=== PATIENT | female | born 1985 | race American Indian/Alaskan Native ===

== ENCOUNTER → 2024-04-06 | Outpatient (CLI) | payer MEDICAID, SELFPAY ==
--- NOTE | 2024-04-06 07:15 | XR_ITS ---
Examination: Abdomen sonogram, complete Date and time of exam: April 06, 2022 0722 hours INDICATIONS: Recurrent epigastric pain one month. Technique: Multiple real-time grayscale transabdominal sonographic images of the abdomen have been obtained. Findings: Normal gallbladder Normal common bile duct 0.3 cm Pancreatic head 2.6 cm Aorta not enlarged. Liver 16.5 cm fatty infiltration smooth contour no focal liver lesions Normal hepatopedal portal venous oh Patent IVC Right kidney 10.3 x 4.7 x 5.3 cm cortex 1.3 cm Left kidney 10.6 x 5.3 x 5.7 cm cortex 1.4 cm Mild left renal parenchymal scar formation Spleen 10.6 cm IMPRESSION: Normal gallbladder Mild hepatomegaly fatty liver
== END | disposition home or self-care (01) ==
LOC: CDIM 06:59
PROVIDERS: Referring Provider Nurse Practitioner Family; Visit Provider Nurse Practitioner Family
DX: K76.0 Fatty (change of) liver, not elsewhere classified (principal)
CPT/HCPCS: 76700

== ENCOUNTER 2024-05-07 08:31 | Emergency (ER) | payer MEDICAID, SELFPAY ==
[2024-05-07 08:38] VITALS: BP 142/85; PULSE 94; RESP 16; TEMP 36.6; O2SAT 98
--- NOTE | 2024-05-07 08:46 | EDNOTE_ITS ---
<Statement entered by Breann Fernando MD - 05/08/24 09:18> As co-signing physician, I was present and available for consult prn. I concur with the plan and care as documented by the midlevel provider. ED Allergic Reaction RME/HPI General Chief complaint: Allergic Reaction Stated complaint: LIP SWELLING SINCE 0500 TODAY, ? ALLERGIC RXN Time Seen by Provider: 05/07/24 08:34 Arrival date/time: 05/07/24 08:31 38-year-old female with no significant medical problems presents the emergency department today with complaints of swelling to the upper lip patient for symptom started last night patient reports no difficulty breathing or swallowing patient reports no chance of Limitations: no limitations Related Data Previous Rx's ?Medication ?Instructions ?Recorded acetaminophen 325 mg tablet 650 mg (2 x 325 mg) PO Q4H #30 tabs 05/08/19 (Tylenol) guaifenesin 400 mg tablet 400 mg PO Q6H #20 tabs 05/08/19 ibuprofen 600 mg tablet 600 mg PO Q6H #30 tabs 05/08/19 pseudoephedrine HCl 60 mg tablet 60 mg PO Q6H #20 tabs 05/08/19 diphenhydramine HCl 25 mg capsule 25 mg PO Q8H PRN allergic symptoms 05/07/24 (Benadryl) #30 caps prednisone 10 mg tablet 30 mg (3 x 10 mg) PO BID 3 days 05/07/24 #18 tabs Allergies Allergy/AdvReac Type Severity Reaction Status Date / Time No Known Allergies Allergy Verified 05/07/24 08:33 Review of Systems Review of Systems Systems Reviewed: All systems reviewed, normal except as documented Constitutional Constitutional: Reports system reviewed and no additional complaints, except as documented, Denies fever(s) and Denies headache(s) Eyes Eyes: Reports system reviewed and no additional complaints, except as documented and Denies blurry vision ENT Ears, Nose, Mouth, and Throat: Reports system reviewed and no additional complaints, except as documented, Denies headache(s), Denies nasal congestion, Denies nasal discharge and Reports other (Upper lip swelling) Cardiovascular Cardiovascular: Reports system reviewed and no additional complaints, except as documented, Denies chest pain and Denies dyspnea Respiratory Respiratory: Reports system reviewed and no additional complaints, except as documented, Denies chest congestion, Denies cough and Denies dyspnea Gastrointestinal Gastrointestinal: Reports system reviewed and no additional complaints, except as documented and Denies abdominal pain Integumentary/Breasts Skin/Breast: Reports system reviewed and no additional complaints, except as documented and Denies rash Neurologic Neurologic: Reports system reviewed and no additional complaints, except as documented, Reports as per HPI and Denies headache(s) Past Medical History Past Medical History NEUROLOGIC: 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) CARDIAC: Negative Cardiac Disorders or Congestive Heart Failure RESPIRATORY: Negative Chronic Obstructive Pulmonary Disease (COPD) GASTROINTESTINAL: Negative Gastrointestinal Disorders GENITOURINARY: Negative Genitourinary Disorders or Renal Disease REPRODUCTIVE: Positive Endometriosis and Previous Pregnancies (1) MUSCULOSKELETAL: Positive Musculoskeletal Disorders ENT: 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) ENDOCRINE: Negative Endocrine Disorders, Diabetes Mellitus Type 1 or Diabetes Mellitus Type 2 HEMATOLOGIC: Negative Blood Disorders OTHER HISTORY: Positive Hospitalization and Chicken Pox; Negative Measles or Mumps Family History FAMILY HISTORY: Positive Family Respiratory Disorders (dad-PNA) Surgical History SURGICAL: Positive Abdominal Surgery; Negative Hysterectomy (D & C 2010) Social History SMOKING STATUS: Never smoker ED Exam General Limitations: Present no limitations General appearance: Present alert and in no apparent distress Head Head exam: Present atraumatic, normocephalic and normal inspection Eye Eye exam: Present normal appearance, PERRL and EOMI; Absent conjunctival injection ENT ENT exam: Present mucous membranes moist and other (Upper lip swelling) Neck Neck exam: Present normal inspection, full ROM and trachea midline Chest Chest inspection: Present normal inspection and symmetric chest wall rise Respiratory Respiratory exam: Present normal lung sounds bilaterally Cardiovascular Cardiovascular exam: Present regular rate, normal rhythm and normal heart sounds Abdominal Exam Abdominal exam: Present soft and normal bowel sounds Extremities Exam Extremities exam: Present normal inspection and full ROM Back Exam Back exam: Present normal inspection and full ROM Neurological Exam Neurological exam: Present alert, oriented X3 and CN II-XII intact Psychiatric Psychiatric exam: Present normal affect and normal mood Skin Skin exam: Present warm, dry, intact and normal color Course Quality Measures none Orders Category Date Time Status Dexamethasone Inj [Decadron Inj] Med 05/07/24 08:46 Discontinued 10 mg PO X1 ONE DiphenhydrAMINE [Benadryl] Med 05/07/24 08:46 Discontinued 25 mg PO X1 ONE Famotidine [Pepcid] Med 05/07/24 08:46 Discontinued 20 mg PO X1 ONE Vital Signs Vital signs: Vital Signs Temperature 97.8 F 05/07/24 08:38 Pulse Rate 94 05/07/24 08:38 Respiratory Rate 16 05/07/24 08:38 Blood Pressure 142/85 H 05/07/24 08:38 Pulse Oximetry (%) 98 05/07/24 08:38 Oxygen Delivery Method Room Air 05/07/24 08:38 O2 saturation 98% room air within normal limits Allergic Reaction MDM Narrative MDM Narrative:: 38-year-old female with no significant medical problems presents the emergency department today with complaints of swelling to the upper lip patient for symptom started last night patient reports no difficulty breathing or swallowing patient reports no chance of On exam patient well-appearing patient does not appear ill or toxic patient does not appear to be in acute distress Patient medicated here for allergic reaction patient has no evidence of anaphylaxis Patient discharged home in no distress to follow-up with primary care doctor in the next 24 to 48 hours and for any worsening symptoms to return to the ER immediately Patient data External records reviewed:: [facility] previous records Clinical information provided by:: patient Social determinants that could affect healthcare access:: none Patient has the following chronic illnesses:: None How is presenting disease/condition affected by chronic disease/condition?: no chronic disease Evaluation data The following diagnostics were reviewed and interpreted by me:: other (specify) (N/A) Lab and/or radiology exams considered but not ordered:: Consider not ordered Interpretation Summary: N/A Medications / Prescriptions Medications or Prescriptions considered but not ordered:: Given Medication administrations:: Medication Administration History Discontinued Medications Dexamethasone Sodium Phosphate (Dexamethasone Sod Phos Inj 10 Mg/Ml Vial) 10 mg PO X1 ONE Stop: 05/07/24 08:47 Last Admin: 05/07/24 08:52 Dose: 10 mg Documented By: SHAYLA Comments: Med give PO Diphenhydramine HCl (Diphenhydramine 25 Mg Capsule) 25 mg PO X1 ONE Stop: 05/07/24 08:47 Last Admin: 05/07/24 08:51 Dose: 25 mg Documented By: DB Famotidine (Famotidine 20 Mg Tablet) 20 mg PO X1 ONE Stop: 05/07/24 08:47 Last Admin: 05/07/24 08:51 Dose: 20 mg Documented By: SHAYLA Given Consultations Consultation(s) initiated? (list below): No Diagnosis Differential Diagnosis allergic reaction: anaphylaxis, allergic reaction, urticaria and other Most likely diagnosis given after review of the tests above:: Allergic reaction Admission Indicated Admission indicated?: not indicated Admission Request Was there a request for admission?: No Disposition Plan Disposition Plan: Discharge Discharge Attestation Discharge Attestation: The patient and all family members were given an opportunity to ask questions and understood the discharge instructions. Discharge instructions specifically effects, indications for sooner follow up or return to the emergency department, and the expected course of current diagnosis. Patient condition: Stable Discharge Plan Plan Patient Disposition: HOME (Self Care) Disposition Comment: Stable Prescriptions/Referrals Prescriptions/Med Rec: New prednisone 10 mg tablet 30 mg PO BID 3 Days Qty: 18 0RF diphenhydramine HCl [Benadryl] 25 mg capsule 25 mg PO Q8H PRN (Reason: allergic symptoms) Qty: 30 0RF No Action pseudoephedrine HCl 60 mg tablet 60 mg PO Q6H Qty: 20 0RF guaifenesin 400 mg tablet 400 mg PO Q6H Qty: 20 0RF ibuprofen 600 mg tablet 600 mg PO Q6H Qty: 30 0RF acetaminophen [Tylenol] 325 mg tablet 650 mg PO Q4H Qty: 30 0RF Problem List Clinical Impression: Allergic reaction Patient/Caregiver Discharge Instructions Education Materials: ED Medicine Reaction: Allergic Additional Instructions: Please follow up with your primary care doctor in the next 24-48hrs for any worsening symptoms return here immediately Print Language: Greek Stand Alone Forms: [facility] Award Info., Patient Portal Info Letter PA/GRADE TEACHER Supervising Physician PA/GRADE TEACHER Supervising Physician: Dr. FERNANDO
[2024-05-07] MEDS: DiphenhydrAMINE 25 MG CAPSULE PO (08:51)
[2024-05-07] MEDS: FAMOTIDINE 20 MG TABLET PO (08:51)
[2024-05-07] MEDS: DEXAMETHASONE SOD PHOS INJ 10 MG/ML VIAL PO (08:52)
== END 2024-05-07 08:57 | disposition home or self-care (01) ==
LOC: SERX 09:03
PROVIDERS: Emergency Provider Emergency Medicine; PCP Nurse Practitioner Family
DX: T78.40XA Allergy, unspecified, initial encounter (principal)
CPT/HCPCS: 99282; J1100; A9270

== ENCOUNTER 2025-01-03 13:08 | Emergency (ER) | payer OTHER, SELFPAY ==
[2025-01-03 13:08] VITALS: BMI 33.8
[2025-01-03 13:33] VITALS: BP 132/79; PULSE 67; RESP 16; TEMP 36.9; O2SAT 97
--- NOTE | 2025-01-03 13:37 | XR_ITS ---
Examination: Abdomen sonogram, Limited Date and time of exam: January 03, 2025 1403 hours INDICATIONS: Right upper abdominal pain today Technique: Real-time miranda scale transabdominal sonographic images of the upper abdomen obtained. Findings: Negative for gallstones Normal gallbladder wall Normal common bile duct 0.3 cm Pancreatic head 2.7 cm Liver 16.2 cm fatty infiltration no focal liver lesions Normal hepatopedal portal venous flow Patent IVC IMPRESSION: Negative for cholelithiasis, negative for cholecystitis Normal common bile duct
--- NOTE | 2025-01-03 13:37 | EDNOTE_ITS ---
<Statement entered by Breann Fernando MD - 01/04/25 11:56> As co-signing physician, I was present and available for consult prn. I concur with the plan and care as documented by the midlevel provider. ED Abdominal Pain RME/HPI General Chief Complaint: Chest Pain Stated complaint: CHEST PAIN SINCE 0800 WORSE WITH BREATHING Time seen by provider: 01/03/25 13:15 Arrival date/time: 01/03/25 13:08 39-year-old female with no known medical history presents to the emergency room with a chief complaint of right upper quadrant abdominal pain that radiates to the epigastric area x 2 days Source: patient Mode of arrival: ambulatory Limitations: no limitations Related Data Previous Rx's ?Medication ?Instructions ?Recorded acetaminophen 325 mg tablet 650 mg (2 x 325 mg) PO Q4H #30 tabs 05/08/19 (Tylenol) guaifenesin 400 mg tablet 400 mg PO Q6H #20 tabs 05/08 ibuprofen 600 mg tablet 600 mg PO Q6H #30 tabs 05/08 pseudoephedrine HCl 60 mg tablet 60 mg PO Q6H #20 tabs 05/08/19 diphenhydramine HCl 25 mg capsule 25 mg PO Q8H PRN all ergic symptoms 05/07/24 (Benadryl) #30 caps Allergies Allergy/AdvReac Type Severity Reaction Status Date / Time cashew nut Allergy Severe Swelling Verified 01/03/25 13:12 of Lip/Tongue/Throat pistachio nut Allergy Severe Swelling Verified 01/03/25 13:12 of Lip/Tongue/Throat Review of Systems Review of Systems Systems Reviewed: All systems reviewed, normal except as documented Constitutional Constitutional: Reports system reviewed and no additional complaints, except as documented, Denies fatigue, Denies fever(s), Denies headache(s) and Denies weakness Eyes Eyes: Reports system reviewed and no additional complaints, except as documented, Denies blurry vision and Denies change in vision ENT Ears, Nose, Mouth, and Throat: Reports system reviewed and no additional complaints, except as documented, Denies otalgia, Denies headache(s), Denies nasal congestion, Denies throat swelling and Denies vertigo Cardiovascular Cardiovascular: Reports system reviewed and no additional complaints, except as documented, Denies chest pain, Denies dyspnea and Denies dyspnea on exertion Respiratory Respiratory: Reports system reviewed and no additional complaints, except as documented, Denies chest congestion, Denies cough, Denies dyspnea, Denies dyspnea on exertion and Denies wheezing Gastrointestinal Gastrointestinal: Reports system reviewed and no additional complaints, except as documented, Reports abdominal pain, Denies cramping, Reports dyspepsia, Reports early satiety, Reports heartburn, Reports nausea and Denies vomiting Genitourinary Genitourinary: Reports system reviewed and no additional complaints, except as documented Musculoskeletal Musculoskeletal: Reports system reviewed and no additional complaints, except as documented and Denies back pain Integumentary/Breasts Skin/Breast: Reports system reviewed and no additional complaints, except as documented and Denies wounds Neurologic Neurologic: Reports system reviewed and no additional complaints, except as documented, Denies confusion, Denies headache(s), Denies lack of coordination, Denies vertigo and Denies weakness Psychiatric Psychiatric: Reports system reviewed and no additional complaints, except as documented, Denies anxiety, Denies confusion, Denies depression, Denies paranoia, Denies suicidal ideation and Denies tactile hallucinations Endocrine Endocrine: Reports system reviewed and no additional complaints, except as documented and Denies fatigue Hematologic/Lymphatic Hematologic/Lymphatic: Reports system reviewed and no additional complaints, except as documented and Denies lymphadenopathy Allergic/Immunologic Allergic/Immunologic: Reports system reviewed and no additional complaints, except as documented, Denies throat swelling, Denies urticaria and Denies wheezing ED Exam General Limitations: Present no limitations General appearance: Present alert and in no apparent distress Head Head exam: Present atraumatic Eye Eye exam: Present normal appearance, PERRL and EOMI ENT ENT exam: Present normal exam, normal oropharynx and mucous membranes moist Neck Neck exam: Present normal inspection, full ROM and trachea midline Chest Chest inspection: Present normal inspection and symmetric chest wall rise Respiratory Respiratory exam: Present normal lung sounds bilaterally; Absent respiratory distress, wheezes, stridor, accessory muscle use or prolonged expiratory phase Cardiovascular Cardiovascular exam: Present regular rate, normal rhythm, normal heart sounds, +S1 and +S2; Absent tachycardia, irregular rhythm, systolic murmur, diastolic murmur, rubs, gallop, clicks or JVD Abdominal Exam Abdominal exam: Present soft, tenderness and normal bowel sounds; Absent Mendez's sign or tenderness at McBurney's Point Abdominal tenderness: Present RUQ, epigastrium and moderate Extremities Exam Extremities exam: Present normal inspection and full ROM Back Exam Back exam: Present normal inspection and full ROM Neurological Exam Neurological exam: Present alert, oriented X3 and CN II-XII intact Psychiatric Psychiatric exam: Present normal affect and normal mood Skin Skin exam: Present warm, dry, intact and normal color Course Quality Measures none Orders Category Date Time Status EKG (ED ONLY) *Do not use* NOW Care 01/03/25 17:[address] chest abdomen pelvis wo Stat Exams 01/03/25 15:17 Completed EKG (ED Only) Stat Exams 01/03/25 17:37 Draft US gall bladder Stat Exams 01/03/25 13:37 Completed US pelvic complete Stat Exams 01/03/25 13:56 Completed CBC Stat Lab 01/03/25 13:51 Completed CMP [Comprehensive Metabolic Panel] Stat Lab 01/03/25 13:51 Completed HCG Qualitative,Urine Stat Lab 01/03/25 13:58 Completed Path Review Blood Smear Stat Lab 01/03/25 13:51 Completed UA [Urinalysis] Stat Lab 01/03/25 13:58 Completed Urine Culture Stat Lab 01/03/25 13:58 Received Vital Signs Vital signs: Vital Signs Temperature 98.4 F 01/03/25 13:33 Pulse Rate 67 01/03/25 13:33 Respiratory Rate 16 01/03/25 13:33 Blood Pressure 132/79 H 01/03/25 13:33 Pulse Oximetry (%) 97 01/03/25 13:33 Oxygen Delivery Method Room Air 01/03/25 13:33 PROCEDURES: EKG Interpretation #1: Date of EK01/04/25 Rate: 63 EKG Impression: Normal sinus rhythm Abdominal Pain MDM MDM Narrative MDM Narrative:: 39-year-old female with no known medical history presents to the emergency room with a chief complaint of right upper quadrant abdominal pain that radiates to the epigastric area x 2 days Physical examination shows clear bilateral lung sounds there is no wheezing stridor or any abnormal breath sounds. During my evaluation the patient's pain is mostly epigastric under her breast area that radiates to the right upper quadrant. The patient had a positive Mendez sign with palpation. The patient states this abdominal pain began after beginning to take naproxen. The patient has a soft nontender lower abdominal exam. The patient also states that when she use the restroom here in the emergency room she was having some blood in the urine. A pelvic ultrasound was completed and shows an irregular mass in her uterus. Patient has a history of this mass in her previous ultra sound in 2022. I spoke to the patient and told her to follow-up with her STAGE SET DESIGNER. During my reevaluation the patient states she was still having some abdominal pain. Even though the ultrasound of the gallbladder was negative for any acute findings a CT chest abdomen and pelvis was ordered and was also negative but did find some bilateral thyroid nodules. The patient was educated to follow-up with your primary care provider for an ultrasound of her thyroid. The CT of the abdomen also showed some mucosal thickening in the gastric antrum and an elective upper GI series was recommended. CBC showed some anemia. Patient was educated to follow-up with her primary care provider regarding this anemia. Patient was discharged and educated to follow-up with primary care provider in the next 24 to 48 hours and return to the emergency room for any evidence of worsening signs or symptoms Patient data External records reviewed:: [facility] previous records Clinical information provided by:: patient Social determinants that could affect healthcare access:: none Patient has the following chronic illnesses:: No chronic illness How is presenting disease/condition affected by chronic disease/condition?: no chronic disease Evaluation data The following diagnostics were reviewed and interpreted by me:: lab results and radiology exam(s) Lab and/or radiology exams considered but not ordered:: Labs and radiology exams considered and ordered Interpretation Summary: CT chest abdomen and pelvis-Findings: 10 mm right thyroid nodule 9 mm left thyroid nodule Breast implants appear intact No thoracic aortic aneurysm dilatation Pulmonary artery segments are not enlarged. No mediastinal lymphadenopathy. No pneumonia, pulmonary edema or pleural disease Fatty infiltration throughout the liver, no focal liver or splenic lesions Contracted gallbladder Mucosal thickening in the gastric antrum, axial image 170 No peripancreatic edema No renal or ureteral calculi, no hydronephrosis 12 mm fat-containing umbilical hernia. No bowel obstruction or diverticulitis 40 mm right adnexal cyst Urinary bladder intact Enlarged fundus of the uterus especially dorsal surface No pericecal inflammatory change The osseous structures are intact Impression: Bilateral thyroid nodules, consider elective dedicated thyroid sonography follow-up No mediastinal lymphadenopathy No pneumonia pulmonary edema or pleural disease Mucosal thickening in the gastric antrum, antral gastritis pattern, consider elective upper GI series follow-up No CT findings of appendicitis or bowel obstruction Posterior uterine body mass with enlarged fundus of uterus, please see the pelvic sonogram report today 40 mm right adnexal cyst Medications / Prescriptions Medications or Prescriptions considered but not ordered:: Medication given Medication administrations:: No medication given Consultations Consultation(s) initiated? (list below): No Diagnosis Differential diagnosis abdominal pain: abdominal pain, acute appendicitis, gastroenteritis and other (Gastritis) Most likely diagnosis given after review of the tests above:: Gastritis Admission Indicated Admission indicated?: not indicated Admission Request Was there a request for admission?: No Disposition Plan Disposition Plan: Discharge Discharge Attestation Discharge Attestation: The patient and all family members were given an opportunity to ask questions and understood the discharge instructions. Discharge instructions specifically effects, indications for sooner follow up or return to the emergency department, and the expected course of current diagnosis. Patient condition: Stable Discharge Plan Plan Patient Disposition: HOME (Self Care) Discharge Disposition comment: Stable Prescriptions/Referrals Prescriptions/Med Rec: No Action pseudoephedrine HCl 60 mg tablet 60 mg PO Q6H Qty: 20 0RF guaifenesin 400 mg tablet 400 mg PO Q6H Qty: 20 0RF ibuprofen 600 mg tablet 600 mg PO Q6H Qty: 30 0RF acetaminophen [Tylenol] 325 mg tablet 650 mg PO Q4H Qty: 30 0RF diphenhydramine HCl [Benadryl] 25 mg capsule 25 mg PO Q8H PRN (Reason: allergic symptoms) Qty: 30 0RF Referrals: Willy)Tricia PA-C [Primary Care Provider] - In 1 week Problem List Clinical Impression: Gastritis Patient/Caregiver Discharge Instructions Education Materials: ED Gastritis (Adult) Additional Instructions: Please follow-up with your primary care provider in the next [address] of your abdomen pelvis was negative for any acute findings. Your pelvic ultrasound showed a mass in the uterus. Please follow-up with your STAGE SET DESIGNER for further management. Your thyroid showed 2 nodules. Please have an ultrasound of your thyroid For any evidence of worsening signs or symptoms please return to emergency room immediately Print Language: Telugu Stand Alone Forms: [facility] Award Info., Patient Portal Info Letter ECTOR/BASILIO Supervising Physician ECTOR/BASILIO Supervising Physician: Dr. Quiroga
--- NOTE | 2025-01-03 13:56 | XR_ITS ---
Examination: Pelvic ultrasound, transabdominal, complete Technique: Transabdominal ultrasound of the pelvis performed using grayscale imaging Date and time of exam: January 03, 2025 1412 hours INDICATIONS: Onset vaginal bleeding and pelvic cramping today FINDINGS: Uterus 10.4 cm endometrial stripe 0.8 cm Posterior uterine body mass 4.2 x 3.7 x 4.5 cm The mass is irregular in contour and vascular Right ovary 4.9 cm arterial flow, 4.2 x 2.8 x 3.2 cm cyst Left ovary 3.1 cm arterial flow IMPRESSION: Posterior uterine body vascular mass with irregular margins, 4.2 x 3.7 x 4.5 cm Recommend ELECTIVE MRI pelvis follow-up pre and postcontrast to exclude malignant neoplasm of the uterus
[2025-01-03 14:08] LABS: Collection Type, Urine Clean Catch
[2025-01-03 14:15] LABS: Basophils # (Auto) 0.1 Thou/mm3 (0.0-0.2); Basophils % (Auto) 1 % (0-2.5); Eosinophils # (Auto) 0.5 Thou/mm3 (0.0-0.5); Eosinophils % (Auto) 5 % (0-10); Hematocrit 33.3 % (36.0-46.0); Hemoglobin 10.0 g/dL (12.0-16.0); Immature Granulocytes Auto 0.03 Thou/mm3 (0.00-0.00); Lymphocytes # (Auto) 2.7 Thou/mm3 (1.0-4.8); Lymphocytes % (Auto) 29 % (10-50); Mean Corpuscular HGB Conc 30.0 g/dl (31.0-37.0); Mean Corpuscular Hemoglobin 20.5 pg (25.0-35.0); Mean Corpuscular Volume 68 fL (80-100); Monocytes # (Auto) 0.6 Thou/mm3 (0.0-0.8); Monocytes % (Auto) 7 % (0-12); Neutrophils # (Auto) 5.4 Thou/mm3 (1.8-7.7); Neutrophils % (Auto) 58 % (37-80); Nucleated Red Blood Cell # 0.00 Thou/mm3 (0.00-0.00); Nucleated Red Blood Cell % 0 /100 WBC (0); Platelet Count 351 Thou/mm3 (140-440); RDW Standard Deviation 41.6 fL (36.4-46.3); Red Blood Count 4.88 Miln/mm3 (4.00-5.20); White Blood Count 9.3 Thou/mm3 (3.6-11.0)
[2025-01-03 14:35] LABS: Bilirubin,Urine Negative (Negative); Blood,Urine 3+ (Negative); Clarity,Urine Turbid (Clear/Hazy); Color,Urine Yellow (Lt Yel-Yel); Glucose, Urine Negative (Negative); Ketones,Urine Negative (Negative); Leukocyte Esterase,Urine Positive (Negative); Nitrite,Urine Negative (Negative); PH,Urine 6.0 (5.0-7.0); Protein,Urine Trace (Neg - Trace); RBC,Urine 8 /hpf (0-3); Specific Gravity,Urine 1.027 (1.001-1.035); Squamous Epithelial Cell,Urine 6 /hpf (0-5); Urobilinogen,Urine Negative mg/dL (0.0-1.0); WBC,Urine 16 /hpf (0-5)
[2025-01-03 14:40] LABS: HCG Qualitative,Urine Negative
[2025-01-03 14:41] LABS: Alanine Aminotransferase 16 U/L (10-49); Albumin, Serum 4.6 gm/dL (3.5-5.0); Albumin/Globulin Ratio 1.6 (1.2-2.2); Alkaline Phosphatase 73 U/L (46-116); Anion Gap 11 (7-16); Aspartate Amino Transferase 19 U/L (0-34); BUN/Creatinine Ratio 24 Ratio (12-20); Bilirubin,Total 0.2 mg/dL (0.3-1.2); Blood Urea Nitrogen 17 mg/dL (9-23); Calcium 9.5 mg/dL (8.3-10.6); Calcium (Corrected) 9.5 mg/dL (8.5-10.1); Carbon Dioxide 23.4 mMol/L (20.0-31.0); Chloride 104 mMol/L (98-107); Creatinine (Component) 0.7 mg/dL (0.6-1.3); Estimated Creatinine Clearance 108.4 mL/min (>60); Globulin 2.8 gm/dL (2.3-3.5); Glucose 103 mg/dL (74-106); Osmolality,Calculated 277 (275-295); Potassium 4.1 mMol/L (3.4-5.1); Sodium 138 mMol/L (136-145); Total Protein 7.4 gm/dL (5.7-8.2); eGFR > 60 See Note
--- NOTE | 2025-01-03 15:17 | XR_ITS ---
Examination: CT chest, without intravenous contrast. CT abdomen, without intravenous contrast. CT pelvis, without intravenous contrast. 2-D sagittal and coronal reconstructions. 3-D reconstructions. Date and time of exam:January 03, 2025 1554 hrs., Comparison CT chest December 04, 2018 Indications: Chest pain heartburn abdominal pain today CTDI vol (mgy) 9.57 DLP (MGycm)691 Technique: Multiple CT images, 3.0 mm slice thickness, obtained chest, abdomen, pelvis, with the high-resolution 64 slice scanner.. Sagittal and coronal 2-D reconstructions are obtained. 3-D reconstructions Low dose protocols were performed. One or more of the following dose reduction techniques were used; automated exposure control, adjustment of the mA and/or KV according to patient size, use of iterative reconstruction technique. Findings: 10 mm right thyroid nodule 9 mm left thyroid nodule Breast implants appear intact No thoracic aortic aneurysm dilatation Pulmonary artery segments are not enlarged. No mediastinal lymphadenopathy. No pneumonia, pulmonary edema or pleural disease Fatty infiltration throughout the liver, no focal liver or splenic lesions Contracted gallbladder Mucosal thickening in the gastric antrum, axial image 170 No peripancreatic edema No renal or ureteral calculi, no hydronephrosis 12 mm fat-containing umbilical hernia. No bowel obstruction or diverticulitis 40 mm right adnexal cyst Urinary bladder intact Enlarged fundus of the uterus especially dorsal surface No pericecal inflammatory change The osseous structures are intact Impression: Bilateral thyroid nodules, consider elective dedicated thyroid sonography follow-up No mediastinal lymphadenopathy No pneumonia pulmonary edema or pleural disease Mucosal thickening in the gastric antrum, antral gastritis pattern, consider elective upper GI series follow-up No CT findings of appendicitis or bowel obstruction Posterior uterine body mass with enlarged fundus of uterus, please see the pelvic sonogram report today 40 mm right adnexal cyst
[2025-01-03 16:38] LABS: Path Review Blood Smear Sent to Pathologist
--- NOTE | 2025-01-03 17:37 | EKG_ITS ---
[facility] Test Date: 2025-01-03 Pat Name: JIM MARTINEZ Department: Room: - Gender: Female Instrumental Musician: : 1985 Requested By: Bryan Echols Order Number: [id number] Reading MD: Bryan Echols Measurements Intervals [place] Rate: 63 P: 14 OK: 150 QRS: -2 QRSD: 98 T: 7 QT: 398 QTc: 408 Interpretive Statements SINUS RHYTHM LOW QRS VOLTAGE IN PRECORDIAL LEADS [QRS DEFLECTION < 1.0 mV IN CHEST LEADS] INCOMPLETE RIGHT BUNDLE BRANCH BLOCK [90+ ms QRS DURATION, TERMINAL R IN V1/V2, 40+ ms S IN I/aVL/V4/V5/V6] No previous ECG available for comparison /[id number]/S0/[id number]
== END 2025-01-03 17:30 | disposition home or self-care (01) ==
PROVIDERS: Nurse Practitioner Family; Emergency Provider Emergency Medicine; PCP Nurse Practitioner Family
DX: K29.70 Gastritis, unspecified, without bleeding (principal); N85.8 Other specified noninflammatory disorders of uterus; E04.2 Nontoxic multinodular goiter; R10.11 Right upper quadrant pain; I45.10 Unspecified right bundle-branch block
CPT/HCPCS: 36415; 71250; 74176; 76705; 76856; 80053; 81001; 81025; 85025; 87086; 93005; 99284

== ENCOUNTER 2025-01-06 17:39 | Emergency (ER) | payer OTHER, SELFPAY ==
[2025-01-06 18:27] VITALS: BP 118/71; PULSE 72; RESP 16; TEMP 36.6; O2SAT 98
--- NOTE | 2025-01-06 18:36 | PD.EDRME ---
Rapid Medical Screening Exam RME Arrival date/time: 01/06/25 17:39 39F with no significant PMH presents to ED with heavy vaginal bleeding (through clothes and soaking up a pad every 30 min) after being sent by Dr. Day, her OB. Patient had large outpatient work-up 2 days ago where a mass was found on pelvic US. MRI was recommended. Urgent outpatient MRI was ordered by PCP. Chief Complaint: Vaginal Bleeding Vital signs: Vital Signs Temperature 97.8 F 01/06/25 18:27 Pulse Rate 72 01/06/25 18:27 Respiratory Rate 16 01/06/25 18:27 Blood Pressure 118/71 01/06/25 18:27 Pulse Oximetry (%) 98 01/06/25 18:27 Oxygen Delivery Method Room Air 01/06/25 18:27
--- NOTE | 2025-01-06 19:07 | EDNOTE_ITS ---
ED OB Contraction Preg RMI/HPI General Chief complaint: Vaginal Bleeding Stated complaint: HEAVY VAG BLEEDING Time Seen by Provider: 01/06/25 19:08 Arrival date/time: 01/06/25 17:39 RME / HPI RME / HPI Narrative: 01/06/25 17:39 39F with no significant PMH presents to ED with heavy vaginal bleeding (through clothes and soaking up a pad every 30 min) after being sent by Dr. Day, her OB. Patient had large outpatient work-up 2 days ago where a mass was found on pelvic US. MRI was recommended. Urgent outpatient MRI was ordered by PCP. -------- Dr. Blake?s Main ED Evaluation: 39yo female with no significant past medical history presents to the ED for a chief complaint of persistent heavy vaginal bleeding x 3 days. Patient called her [facility] today and was sent over for evaluation to have her hemoglobin checked. She was prescribed control, but has not yet started it. She is pending an outpatient MRI. Patient denies any abdominal pain or any other associated symptoms. Related Data Previous Rx's ?Medication ?Instructions ?Recorded acetaminophen 325 mg tablet 650 mg (2 x 325 mg) PO Q4H #30 tabs 05/08/19 (Tylenol) guaifenesin 400 mg tablet 400 mg PO Q6H #20 tabs 05/08 ibuprofen 600 mg tablet 600 mg PO Q6H #30 tabs 05/08 pseudoephedrine HCl 60 mg tablet 60 mg PO Q6H #20 tabs 05/08/19 diphenhydramine HCl 25 mg capsule 25 mg PO Q8H PRN all ergic symptoms 05/07/24 (Benadryl) #30 caps Allergies Allergy/AdvReac Type Severity Reaction Status Date / Time cashew nut Allergy Severe Swelling Verified 01/03/25 13:12 of Lip/Tongue/Throat pistachio nut Allergy Severe Swelling Verified 01/03/25 13:12 of Lip/Tongue/Throat Review of Systems Review of Systems Systems Reviewed: All systems reviewed, normal except as documented Past Medical History Past Medical History NEUROLOGIC: 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) CARDIAC: Negative Cardiac Disorders or Congestive Heart Failure RESPIRATORY: Negative Chronic Obstructive Pulmonary Disease (COPD) GASTROINTESTINAL: Negative Gastrointestinal Disorders GENITOURINARY: Negative Genitourinary Disorders or Renal Disease REPRODUCTIVE: Positive Endometriosis and Previous Pregnancies (1) MUSCULOSKELETAL: Positive Musculoskeletal Disorders ENT: 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) ENDOCRINE: Negative Endocrine Disorders, Diabetes Mellitus Type 1 or Diabetes Mellitus Type 2 HEMATOLOGIC: Negative Blood Disorders OTHER HISTORY: Positive Hospitalization and Chicken Pox; Negative Measles or Mumps Family History FAMILY HISTORY: Positive Family Respiratory Disorders (dad-PNA) Surgical History SURGICAL: Positive Abdominal Surgery; Negative Hysterectomy (D & C 2010) Social History SMOKING STATUS: Never smoker ED Exam Narrative Physical exam: Generally patient is alert and in no obvious distress, heart regular rate and rhythm, lungs clear to auscultation equal bilaterally, abdomen soft bowel sounds present nondistended nontender, skin is warm pale and dry, neurologic exam Christin Coma Scale of 15 Course Quality Measures none Orders Category Date Time Status CBC Stat Lab 01/06/25 18:50 Completed CMP [Comprehensive Metabolic Panel] Stat Lab 01/06/25 18:50 Completed INR [Prothrombin Time with INR] Stat Lab 01/06/25 18:50 Completed PTT [Partial Thromboplastin Time] Stat Lab 01/06/25 18:50 Completed Type and Screen Stat Lab 01/06/25 18:50 Received Vital Signs Vital signs: Vital Signs Temperature 97.8 F 01/06/25 18:27 Pulse Rate 72 01/06/25 18:27 Respiratory Rate 16 01/06/25 18:27 Blood Pressure 118/71 01/06/25 18:27 Pulse Oximetry (%) 98 01/06/25 18:27 Oxygen Delivery Method Room Air 01/06/25 18:27 Vaginal Bleeding MDM Narrative MDM Narrative: Scribe Attestation: 01/06/25 - Marie Lockhart am scribing for and in the presence of Dr. Blake. I interpreted all labs. 3 days ago test was negative. Hemoglobin was 10.0 3 days ago. Tonight is 9.3. Platelet count is normal. She was sent in today by her [facility] physician and make sure that she is not bleeding to the point of needing a blood transfusion. With a hemoglobin today of 9.3 the patient does not need a blood transfusion. She is to start the control pills as prescribed to her by her physician. Get the outpatient MRI. Return to ER as needed or if condition worsens. Patient data External records reviewed:: [facility] previous records (Per chart review, patient was seen here on 01/03/25 for gastritis.) Clinical information provided by:: patient Social determinants that could affect healthcare access:: none Patient has the following chronic illnesses:: none How is presenting disease/condition affected by chronic disease/condition?: no chronic disease Evaluation data The following diagnostics were reviewed and interpreted by me:: lab results Lab and/or radiology exams considered but not ordered:: none Interpretation Summary: See MDM Medications / Prescriptions Medications or Prescriptions considered but not ordered:: none Medication administrations:: none Consultations Consultation(s) initiated? (list below): No Diagnosis Vaginal Bleeding Differential Diagnosis: other (See MDM) Most likely diagnosis given after review of the tests above:: see clinical impression below Admission Indicated Admission indicated?: not indicated Admission Request Was there a request for admission?: No Disposition Plan Disposition Plan: Discharge Discharge Attestation Discharge Attestation: The patient and all family members were given an opportunity to ask questions and understood the discharge instructions. Discharge instructions specifically effects, indications for sooner follow up or return to the emergency department, and the expected course of current diagnosis. Patient condition: Stable Discharge Plan Plan Patient Disposition: HOME (Self Care) Prescriptions/Referrals Prescriptions/Med Rec: No Action pseudoephedrine HCl 60 mg tablet 60 mg PO Q6H Qty: 20 0RF guaifenesin 400 mg tablet 400 mg PO Q6H Qty: 20 0RF ibuprofen 600 mg tablet 600 mg PO Q6H Qty: 30 0RF acetaminophen [Tylenol] 325 mg tablet 650 mg PO Q4H Qty: 30 0RF diphenhydramine HCl [Benadryl] 25 mg capsule 25 mg PO Q8H PRN (Reason: allergic symptoms) Qty: 30 0RF Referrals: No Primary/Family,Physician [Primary Care Provider] - In 1 week Problem List Clinical Impression: Vaginal bleeding, Mass of uterus, Anemia Patient/Caregiver Discharge Instructions Education Materials: Understanding Uterine Bleeding, ED Anemia Type Not Specified Additional Instructions: Start the control pills. Keep well-hydrated. Get your outpatient MRI. Follow-up with your [facility] physician. Return to ER as needed. Print Language: Citizen Of [place] Stand Alone Forms: [facility] Award Info., Patient Portal Info Letter
[2025-01-06 19:17] LABS: Basophils # (Auto) 0.1 Thou/mm3 (0.0-0.2); Basophils % (Auto) 1 % (0-2.5); Eosinophils # (Auto) 0.5 Thou/mm3 (0.0-0.5); Eosinophils % (Auto) 6 % (0-10); Hematocrit 31.4 % (36.0-46.0); Hemoglobin 9.3 g/dL (12.0-16.0); Immature Granulocytes Auto 0.01 Thou/mm3 (0.00-0.00); Lymphocytes # (Auto) 3.4 Thou/mm3 (1.0-4.8); Lymphocytes % (Auto) 44 % (10-50); Mean Corpuscular HGB Conc 29.6 g/dl (31.0-37.0); Mean Corpuscular Hemoglobin 20.4 pg (25.0-35.0); Mean Corpuscular Volume 69 fL (80-100); Monocytes # (Auto) 0.6 Thou/mm3 (0.0-0.8); Monocytes % (Auto) 8 % (0-12); Neutrophils # (Auto) 3.1 Thou/mm3 (1.8-7.7); Neutrophils % (Auto) 41 % (37-80); Nucleated Red Blood Cell # 0.00 Thou/mm3 (0.00-0.00); Nucleated Red Blood Cell % 0 /100 WBC (0); Platelet Count 350 Thou/mm3 (140-440); RDW Standard Deviation 43.6 fL (36.4-46.3); Red Blood Count 4.56 Miln/mm3 (4.00-5.20); White Blood Count 7.7 Thou/mm3 (3.6-11.0)
[2025-01-06 19:37] VITALS: BMI 33.8
[2025-01-06 19:37] LABS: Alanine Aminotransferase 18 U/L (10-49); Albumin, Serum 4.2 gm/dL (3.5-5.0); Albumin/Globulin Ratio 1.5 (1.2-2.2); Alkaline Phosphatase 66 U/L (46-116); Anion Gap 9 (7-16); Aspartate Amino Transferase 19 U/L (0-34); BUN/Creatinine Ratio 17 Ratio (12-20); Bilirubin,Total 0.2 mg/dL (0.3-1.2); Blood Urea Nitrogen 15 mg/dL (9-23); Calcium 9.4 mg/dL (8.3-10.6); Calcium (Corrected) 9.4 mg/dL (8.5-10.1); Carbon Dioxide 25.4 mMol/L (20.0-31.0); Chloride 108 mMol/L (98-107); Creatinine (Component) 0.9 mg/dL (0.6-1.3); Globulin 2.8 gm/dL (2.3-3.5); Glucose 94 mg/dL (74-106); Osmolality,Calculated 283 (275-295); Potassium 4.1 mMol/L (3.4-5.1); Sodium 142 mMol/L (136-145); Total Protein 7.0 gm/dL (5.7-8.2); eGFR > 60 See Note
[2025-01-06 19:41] LABS: INR 1.0 (0.9-1.3); Partial Thromboplastin Time 24.7 Seconds (22.0-36.0); Prothrombin Time 11.4 Seconds (9.0-12.2)
[2025-01-06 20:08] VITALS: BP 117/60; PULSE 72; RESP 16; TEMP 36.8; O2SAT 98
== END 2025-01-06 20:09 | disposition home or self-care (01) ==
PROVIDERS: Physician Assistant; Emergency Provider Emergency Medicine
DX: N85.8 Other specified noninflammatory disorders of uterus (principal); D64.9 Anemia, unspecified
CPT/HCPCS: 36415; 80053; 85025; 85610; 85730; 86850; 86900; 86901; 99283